=== PATIENT | female | born 1995 | race Caucasian/White ===

== ENCOUNTER → 2016-11-04 | Outpatient (CLI) | payer OTHER | LOC: LAB 14:12 | DX: R30.9 Painful micturition, unspecified (principal) ==

== ENCOUNTER 2016-11-09 07:04 | Day surgery (SDC) | payer OTHER ==
--- NOTE | 2016-11-09 08:31 | Operative Note ---
Colonoscopy ([facility]) Procedure date: 11/09/16 Date of : [birth year] Procedure:Colonoscopy Colonoscopy with hemorrhoid band ligation Indications: Mrs. Casper is a 21-year-old female who is here for diagnostic colonoscopy. She was told that she had rectal prolapse by Dr. Clayton Garcia in [place] but the patient formally had hemorrhoids. She has had no rectal bleeding and more than 6 months. The patient has had chronic constipation. She presently is on a fiber bowel regimen (MiraLAX plus Konsyl) and Trulance. The patient reports no abdominal pain, weight loss, change in her bowel habits or family history of colitis, Crohn's disease or colon cancer. She did have an appendectomy at age 5 or 6 with abscess. She states that she had a complication after a colonoscopy at that age with Dr. Long. Performing Provider: Latoya Garner MD Referrring Provider: Kaylynn WILLETT Sedation: Fentanyl 200 mg IV/Versed 9 mg IV Procedure: Prior to the procedure, a history and physical exam was performed, and patient medications and allergies were reviewed. The risks and benefits of the procedure and the sedation options and risks were discussed with the patient. All questions were answered and informed consent was obtained. Patient identification and proposed procedure were verified by the physician and the nurse. The patient was placed in a left lateral decubitus position. Throughout the procedure, the patient's blood pressure, pulse, and oxygen saturations were monitored continuously. Findings: On digital rectal examination there was normal rectal tone. There were no external hemorrhoids. The colonoscope was introduced through the anal canal to the rectum and advanced to the cecum. The ileocecal valve and appendiceal orifice were identified. The scope was advanced a short distance into the ileum which appeared grossly normal. The scope was then withdrawn into the colon. The cecum, ascending, transverse, descending, sigmoid and rectum were grossly normal. There were no mucosal abnormalities identified. Upon retroflexion within the rectum there were grade 1-2 internal hemorrhoids. 2 columns of the hemorrhoids were banded using 2 bands with excellent ligation effect. Impressions: 1. Normal colonoscopy with intubation of the terminal ileum 2. Grade 1-2 internal hemorrhoids status post band ligation 2 Recommendations: I would encourage continuation of the fiber bowel regimen and Trulance. Complications: None EBL (ml): 0 at 0830
[2016-11-09 14:26] VITALS: BP 106/58
== END 2016-11-09 09:36 | disposition home or self-care (01) ==
LOC: SDC 07:04
PROVIDERS: Internal Medicine Gastroenterology
PROC: 06LY4CC Occlusion of Hemorrhoidal Plexus with Extraluminal Device, Percutaneous Endoscopic Approach (ICD-10-PCS; principal; 2016-11-09 13:30)
DX: K62.3 Rectal prolapse (principal); K64.1 Second degree hemorrhoids